=== PATIENT | female | born 1975 ===

== ENCOUNTER 2016-03-13 11:17 | Outpatient (CLI) | payer MEDICAID ==
--- NOTE | 2016-03-13 13:00 | Mammography Report ---
BILATERAL DIGITAL DIAGNOSTIC MAMMOGRAM : 03/13/16 11:17:00 CLINICAL: Breast cancer survivor status post left partial mastectomy and radiation therapy in 2016. COMPARISON:03/31/15 left mammogram. No right mammogram is available. FINDINGS: The breasts are heterogeneously dense, which may obscure small masses. Left upper outer postsurgical scar with clips. Previously described malignant calcifications have been removed. No mass, suspicious architectural distortion or suspicious calcifications. Moderate periareolar skin thickening of the left breast. IMPRESSION: No mammographic evidence of malignancy. Benign posttreatment changes in the left breast. BI-RADS CATEGORY: 2 -- Benign RECOMMENDATION: Routine mammographic screening. COMMENT: Patient follow-up letters are generated via our [employer] application.
== END 2016-03-13 11:18 | disposition home or self-care (01) ==
LOC: SPVWC 11:17
PROVIDERS: ATTEND Surgery
DX: C50.912 Malignant neoplasm of unspecified site of left female breast (principal); Z90.12 Acquired absence of left breast and nipple
CPT/HCPCS: 77066; G0204

== ENCOUNTER 2016-10-25 11:00 | Outpatient (CLI) | payer MEDICAID ==
--- NOTE | 2016-10-25 11:33 | Mammography Report ---
Left mammogram: The patient is post left lumpectomy for cancer with radiation therapy. Comparison is made to her prior exam in March 2016. Surgical architectural distortion identified in the upper breast. Skin thickening identified predominantly in the anterior and medial aspects of the breast. The overall architectural pattern is heterogeneously dense. The findings are all unchanged. CAD used. Impression: Stable post surgical/treatment changes left breast. Recommendation: Followup per your protocol. BI-RADS CATEGORY: 2 = Benign ACR BI-RADS MAMMOGRAPHIC CODES: 0 = Needs additional imaging evaluation; 1 = Negative; 2 = Benign; 3 = Probably benign; 4 = Suspicious; 5 = Malignant; 6 = Known biopsy-proven malignancy COMMENT: 1. Dense breast tissue, i.e., adenosis, fibrocystic changes, etc., may obscure an underlying neoplasm. 2. Approximately 10% of cancers are not detected with mammography. 3. A negative mammography report should not delay biopsy if a clinically suspicious mass is present.
== END 2016-10-25 11:01 | disposition home or self-care (01) ==
LOC: SPVWC 11:00
PROVIDERS: ATTEND Surgery
DX: C50.112 Malignant neoplasm of central portion of left female breast (principal); R92.8 Other abnormal and inconclusive findings on diagnostic imaging of breast; Z98.890 Other specified postprocedural states
CPT/HCPCS: G0206-LT